=== PATIENT | female | born 1950 | race Asian ===

== ENCOUNTER 2025-07-10 11:32 | Outpatient (CLI) | payer MEDICARE, MEDICAID | END 2025-07-10 11:33 | disposition home or self-care (01) | LOC: SCSMRI 11:32 | PROVIDERS: ATTEND Orthopaedic Surgery | DX: M23.92 Unspecified internal derangement of left knee (principal); M25.462 Effusion, left knee; S83.242A Other tear of medial meniscus, current injury, left knee, initial encounter; S83.282A Other tear of lateral meniscus, current injury, left knee, initial encounter; M24.19 Other articular cartilage disorders, other specified site ==